=== PATIENT | male | born 1975 | race Two or more races ===

== ENCOUNTER 2017-11-17 22:44 | Emergency (ER) | payer OTHER ==
[~2017-11-17] VITALS: Ht 175.3 cm; Wt 79.4 kg
[2017-11-17 23:02] VITALS: BP 136/80
[2017-11-18] MEDS ORDERED: DEXAMETHASONE SOD PHOS 10MG/1ML VIAL INJ IM ONE
[2017-11-18] MEDS ORDERED: diphenhdrAMINE HCL 25 MG CAP PO ONE
[2017-11-18] MEDS ORDERED: FAMOTIDINE 20 MG TAB PO ONE
== END 2017-11-18 00:42 | disposition home or self-care (01) ==
LOC: ER 22:45
DX: L29.9 Pruritus, unspecified (principal); T44.995A Adverse effect of other drug primarily affecting the autonomic nervous system, initial encounter; Y92.9 Unspecified place or not applicable; Z88.8 Allergy status to other drugs, medicaments and biological substances
CPT/HCPCS: 96372; 99283; J1100

== ENCOUNTER 2018-09-05 22:24 | Emergency (ER) | payer OTHER ==
[~2018-09-05] VITALS: Ht 175.3 cm; Wt 78.0 kg
[2018-09-05 22:50] VITALS: BP 113/78
[2018-09-05 23:28] LABS: Basophils # (auto) 0 uL; Basophils % (auto) 0.7 % (0.0-2.0); Eosinophils # (auto) 0.2 uL; Eosinophils % (auto) 3.6 % (0.0-7.0); Hematocrit 44.3 % (41.0-53.0); Hemoglobin 15.2 g/dL (13.5-17.5); Lymphocytes # (auto) 1.4 uL; Lymphocytes % (auto) 24.7 % (10.0-50.0); Mean Corpuscular Hemoglobin 31.2 pg (28.0-32.0); Mean Corpuscular Hgb Conc. 34.3 g/dL (32.0-36.0); Mean Corpuscular Volume 91.1 fL (80.0-100.0); Monocytes # (auto) 0.7 uL; Monocytes % (auto) 11.3 % (0.0-12.0); Neutrophils # (auto) 3.5 uL; Neutrophils % (auto) 59.7 % (37.0-80.0); Nucleated Red Blood Cells % 0.1 %; Platelet Count (auto) 179 10^3/uL (140-450); Red Blood Cells 4.87 10^6/uL (4.5-5.90); Red Cell Distribution Width 13.8 % (11.8-14.3); White Blood Cell 5.8 10^3/uL (4.4-10.8)
[2018-09-05 23:39] LABS: INR 0.88 (0.9-1.15); Prothrombin Time 9.5 sec (9.27-12.13)
[2018-09-05 23:41] LABS: Albumin 3.6 g/dL (3.4-5.0); Anion Gap 8 (5-15); Blood Urea Nitrogen 17 mg/dL (7-18); Calcium 8.4 mg/dL (8.5-10.1); Carbon Dioxide 24 mmol/L (21-32); Chloride 108 mmol/L (98-107); Glucose 137 mg/dL (74-106); Magnesium 2.4 mg/dL (1.6-2.6); Potassium 3.4 mmol/L (3.5-5.1); Sodium 140 mmol/L (136-145)
[2018-09-05 23:43] LABS: Alanine Aminotransferase 23 U/L (16-61); Aspartate Aminotransferase 36 U/L (15-37); GFR African American 98 mL/min; GFR Non-African American 81 mL/min
[2018-09-05 23:48] LABS: Alkaline Phosphatase 119 U/L (45-117); Bilirubin, Total 0.4 mg/dL (0.2-1.0); Total Protein 7.1 g/dL (6.4-8.2)
== END 2018-09-06 05:35 | disposition left against medical advice (07) ==
LOC: ER 22:25
DX: R07.89 Other chest pain (principal); Z53.21 Procedure and treatment not carried out due to patient leaving prior to being seen by health care provider
CPT/HCPCS: 36415; 71046; 80053; 83735; 83880; 84443; 84484; 85025; 85610; 85730; 93005

== ENCOUNTER → 2020-03-17 | Emergency (ER) | payer SELFPAY ==
[~2020-03-17] VITALS: Ht 175.3 cm; Wt 81.6 kg
[2020-03-17 14:39] VITALS: BP 136/74
== END | disposition home or self-care (01) ==
LOC: ER 12:02
DX: H60.92 Unspecified otitis externa, left ear (principal); Z88.8 Allergy status to other drugs, medicaments and biological substances

== ENCOUNTER 2020-12-03 19:45 | Emergency (ER) | payer MEDICAID, OTHER ==
[~2020-12-03] VITALS: Ht 175.3 cm; Wt 129.3 kg
[2020-12-03 19:51] VITALS: BP 139/99
[2020-12-03] MEDS ORDERED: SODIUM CHLORIDE 0.9% 1,000 ML IV ONE (20:30)
[2020-12-03] MEDS ORDERED: ONDANSETRON HCL 4 MG/2 ML VIAL IV ONE (20:30)
[2020-12-03 21:14] LABS: Basophils # (auto) 0 10 ^3/uL (0-0.2); Basophils % (auto) 0.1 % (0.0-2.0); Eosinophils # (auto) 0 10 ^3/uL (0-0.8); Eosinophils % (auto) 0.1 % (0.0-7.0); Hematocrit 47.8 % (41.0-53.0); Hemoglobin 16.3 g/dL (13.5-17.5); Lymphocytes # (auto) 0.8 10 ^3/uL (0.4-5.4); Mean Corpuscular Hemoglobin 30.3 pg (28.0-32.0); Mean Corpuscular Hgb Conc. 34.1 g/dL (32.0-36.0); Mean Corpuscular Volume 88.7 fL (80.0-100.0); Monocytes # (auto) 0.9 10 ^3/uL (0-1.3); Monocytes % (auto) 6.7 % (0.0-12.0); Neutrophils # (auto) 11.6 10 ^3/uL (1.6-8.6); Neutrophils % (auto) 87.1 % (37.0-80.0); Platelet Count (auto) 263 10^3/uL (140-450); Red Blood Cells 5.38 10^6/uL (4.5-5.90); Red Cell Distribution Width 13.7 % (11.8-14.3); White Blood Cell 13.3 10^3/uL (4.4-10.8)
[2020-12-03 21:28] LABS: Potassium 3.8 mmol/L (3.5-5.1)
[2020-12-03 21:32] LABS: Albumin 4.4 g/dL (3.4-5.0); BUN/Creatinine Ratio 15.2
[2020-12-03 21:34] LABS: Bilirubin, Total 0.7 mg/dL (0.2-1.0); Total Protein 8.7 g/dL (6.4-8.2)
== END 2020-12-03 22:53 | disposition left against medical advice (07) ==
LOC: EDBD 19:45 → ER 19:47
DX: R11.2 Nausea with vomiting, unspecified (principal); R10.84 Generalized abdominal pain; Z88.8 Allergy status to other drugs, medicaments and biological substances
CPT/HCPCS: 36415; 80053; 83735; 85025